=== PATIENT | male | born 1965 | race Asian ===

== ENCOUNTER 2020-03-06 23:37 | Emergency (ER) | payer BC ==
[~2020-03-06] VITALS: Ht 180.3 cm; Wt 159.0 kg
[~2020-03-06 23:37] MED LIST: ALLO100T30 PO; CEPH-376 PO; FURO40TA6 PO; HYDR-3237 PO; INSU500V SQ-INSULIN; LISI-167 PO
--- NOTE | 2020-03-07 00:21 | NUR ---
BLADDER SCAN IS 0. PT REPORTS DIALYSIS TODAY AND THAT HE MAKES VERY LITTLE URINE.
[2020-03-07 00:36] LABS: BASOPHILS # (AUTO) 0.01 x10^3/uL (0-0.1); BASOPHILS % (AUTO) 0 % (0-1); EOSINOPHILS # (AUTO) 0.26 x10^3/uL (0-0.4); EOSINOPHILS % (AUTO) 4 % (1-7); LYMPHOCYTES # (AUTO) 2.42 x10^3/uL (1-3.4); LYMPHOCYTES % (AUTO) 35 % (22-44); MD NO; MEAN CORPUSCULAR HEMOGLOBIN 30.6 pg (27.5-34.5); MEAN CORPUSCULAR VOLUME 89.9 fL (81-97); MEAN PLATELET VOLUME 6.5 fL (7.4-10.4); MONOCYTES # (AUTO) 0.52 x10^3/uL (0.2-0.8); MONOCYTES % (AUTO) 8 % (2-9); NEUTROPHILS # (AUTO) 3.79 x10^3/uL (1.8-6.8); NEUTROPHILS % (AUTO) 54 % (42-75); PLATELET COUNT 265 x10^3/uL (130-400); RED BLOOD COUNT 3.46 x10^6/uL (4.38-5.82); RED CELL DISTRIBUTION WIDTH 13.5 % (9.4-14.8)
[2020-03-07 00:44] LABS: ALANINE AMINOTRANSFERASE 22 U/L (12-78); ALBUMIN 3.2 g/dL (3.4-5.0); ANION GAP 5 mmol/L (5-15); CALCIUM 7.9 mg/dL (8.5-10.1); CHLORIDE 96 mmol/L (98-107)
[2020-03-07 00:46] LABS: ALKALINE PHOSPHATASE 56 U/L (45-117); BILIRUBIN,TOTAL 0.4 mg/dL (0.2-1.0); TOTAL PROTEIN 7.6 g/dL (6.4-8.2)
--- NOTE | 2020-03-07 01:02 | NUR ---
PT STRAIGHT CATH FOR URINE UTILIZING STERILE TECHNIQUE. PT DENIES CURRENT NEEDS AT THIS TIME.
[2020-03-07 01:15] LABS: MICROSCOPIC INDICATED
--- NOTE | 2020-03-07 02:12 | NUR ---
PT SLEEPING AT THIS TIME.
[2020-03-07 03:02] VITALS: BP 92/58
== END 2020-03-07 03:04 | disposition home or self-care (01) ==
LOC: ED 03-07 02:34
DX: I12.0 Hypertensive chronic kidney disease with stage 5 chronic kidney disease or end stage renal disease (principal); E11.22 Type 2 diabetes mellitus with diabetic chronic kidney disease; N18.6 End stage renal disease; I21.9 Acute myocardial infarction, unspecified; I45.9 Conduction disorder, unspecified; R53.1 Weakness; M10.9 Gout, unspecified; Z99.2 Dependence on renal dialysis; Z87.891 Personal history of nicotine dependence
CPT/HCPCS: 36415; 80053; 81001; 83735; 85025; 93005; 99285

== ENCOUNTER 2020-04-07 19:25 | Emergency (ER) | payer BC ==
[~2020-04-07] VITALS: Ht 180.3 cm; Wt 158.0 kg
[2020-04-07 19:47] VITALS: BP 108/72
[2020-04-07 20:21] LABS: BASOPHILS # (AUTO) 0.06 x10^3/uL (0-0.1); BASOPHILS % (AUTO) 1 % (0-1); EOSINOPHILS # (AUTO) 0.25 x10^3/uL (0-0.4); EOSINOPHILS % (AUTO) 2 % (1-7); LYMPHOCYTES # (AUTO) 2.84 x10^3/uL (1-3.4); LYMPHOCYTES % (AUTO) 28 % (22-44); MD NO; MEAN CORPUSCULAR HEMOGLOBIN 30.6 pg (27.5-34.5); MEAN CORPUSCULAR HGB CONC 33.4 g/dL (33.2-36.2); MEAN CORPUSCULAR VOLUME 91.5 fL (81-97); MEAN PLATELET VOLUME 6.6 fL (7.4-10.4); MONOCYTES # (AUTO) 0.28 x10^3/uL (0.2-0.8); MONOCYTES % (AUTO) 3 % (2-9); NEUTROPHILS # (AUTO) 6.82 x10^3/uL (1.8-6.8); NEUTROPHILS % (AUTO) 67 % (42-75); PLATELET COUNT 395 x10^3/uL (130-400); RED BLOOD COUNT 3.71 x10^6/uL (4.38-5.82); RED CELL DISTRIBUTION WIDTH 14.1 % (9.4-14.8)
[2020-04-07 20:31] LABS: ALBUMIN 3.8 g/dL (3.4-5.0); ANION GAP 8 mmol/L (5-15); CALCIUM 8.9 mg/dL (8.5-10.1); CHLORIDE 98 mmol/L (98-107); CREATININE 7.91 mg/dL (0.7-1.3)
[2020-04-07 20:34] LABS: TROPONIN I < 0.015 ng/mL (0.000-0.045)
--- NOTE | 2020-04-07 20:35 | NUR ---
this tech did ekg
--- NOTE | 2020-04-07 21:19 | NUR ---
PT COLE FOUND BY HOUSEKEEPING UNDER BED. COLE RETURNED TO PT WHO WAS STILL IN THE LOBBY AWAITING RIDE.
== END 2020-04-07 20:59 | disposition home or self-care (01) ==
LOC: ED 20:50
DX: E11.22 Type 2 diabetes mellitus with diabetic chronic kidney disease (principal); I12.0 Hypertensive chronic kidney disease with stage 5 chronic kidney disease or end stage renal disease; N18.6 End stage renal disease; R07.89 Other chest pain; R00.0 Tachycardia, unspecified; Z99.2 Dependence on renal dialysis
CPT/HCPCS: 36415; 71045; 80048; 82040; 84484; 85025; 93005; 99285

== ENCOUNTER 2020-07-27 15:03 | Outpatient (CLI) | payer MEDICARE ==
[~2020-07-27] VITALS: Ht 180.3 cm; Wt 165.1 kg
[~2020-07-27 15:03] MED LIST changes: +CHLORHEXIDINE 15 ML UDC ONE
[2020-07-27 15:58] VITALS: BP 134/88
[2020-07-27] MEDS ORDERED: PLEASE ENTER HEIGHT AND WEIGHT MC SCH (16:00)
[2020-07-27] MEDS ORDERED: CHLORHEXIDINE 15 ML UDC MM ONE (16:00)
[2020-07-27] MEDS ORDERED: HEPARIN 1,000 UNITS/ML, 10ML ONE (16:01)
[2020-07-27] MEDS ORDERED: PROTAMINE SULFATE 10 MG/ML, 5ML ONE (16:01)
[2020-07-27] MEDS ORDERED: THROMBIN 5,000 UNIT VIAL TP ONE (16:01)
[2020-07-27] MEDS ORDERED: PAPAVERINE 30 MG/ML, 2ML ONE (16:01)
[2020-07-27] MEDS ORDERED: BUPIVACAINE/PF 0.25% ONE (16:01)
[2020-07-27 16:26] LABS: BASOPHILS % (AUTO) 1 % (0-1); EOSINOPHILS % (AUTO) 2 % (1-7); LYMPHOCYTES % (AUTO) 19 % (22-44); MEAN CORPUSCULAR HEMOGLOBIN 30.7 pg (27.5-34.5); MEAN CORPUSCULAR HGB CONC 33.8 g/dL (33.2-36.2); MEAN PLATELET VOLUME 6.7 fL (7.4-10.4); MONOCYTES % (AUTO) 8 % (2-9); NEUTROPHILS % (AUTO) 70 % (42-75); PLATELET COUNT 443 x10^3/uL (130-400); RED BLOOD COUNT 3.93 x10^6/uL (4.38-5.82)
[2020-07-27 16:27] LABS: MD NO
[2020-07-27 16:32] LABS: ANION GAP 11 mmol/L (5-15); CALCIUM 9.1 mg/dL (8.5-10.1); CHLORIDE 95 mmol/L (98-107)
[2020-07-31] MEDS ORDERED: HEPARIN 1,000 UNITS/ML, 10ML ONE (18:21)
[2020-07-31] MEDS ORDERED: BUPIVACAINE/PF 0.25% ONE (18:21)
== END 2020-07-27 23:59 | disposition home or self-care (01) ==
LOC: OUT 15:03 → OR 15:03 → EDSTATUS 17:00 → OUT 23:59
PROVIDERS: ATTEND Surgery
DX: T82.590A Other mechanical complication of surgically created arteriovenous fistula, initial encounter (principal); Z53.8 Procedure and treatment not carried out for other reasons; N18.6 End stage renal disease; Z20.828 Contact with and (suspected) exposure to other viral communicable diseases; Y82.8 Other medical devices associated with adverse incidents; Z88.0 Allergy status to penicillin; Z79.4 Long term (current) use of insulin; Z79.899 Other long term (current) drug therapy; Z98.890 Other specified postprocedural states; Z87.891 Personal history of nicotine dependence
CPT/HCPCS: 80048; 82962; 85025; 87635; 93005; J1644; J2720; J2440

== ENCOUNTER 2020-08-07 15:06 | Day surgery (SDC) | payer MEDICARE ==
[~2020-08-07] VITALS: Ht 180.3 cm; Wt 166.6 kg
[~2020-08-07 15:06] MED LIST changes: +CEFAZOLIN 1,000 MG ONE; -CHLORHEXIDINE 15 ML UDC ONE; +DEXAMETHASONE 4 MG/ML, 1ML ONE; +ONDANSETRON 2MG/ML, 2ML ONE; +PROPOFOL 10 MG/ML, 20ML ONE; +SUCCINYLCHOLINE 20 MG/ML, 10ML ONE
[2020-08-07] MEDS ORDERED: SODIUM CHLORIDE 0.9% 1,000 ML IV SCH (16:00)
[2020-08-07] MEDS ORDERED: CHLORHEXIDINE 15 ML UDC MM ONE (16:00)
[2020-08-07 16:01] VITALS: BP 153/91
[2020-08-07] MEDS ORDERED: THROMBIN 5,000 UNIT VIAL TP ONE (16:09)
[2020-08-07] MEDS ORDERED: PROTAMINE SULFATE 10 MG/ML, 5ML ONE (16:09)
[2020-08-07] MEDS ORDERED: HEPARIN 1,000 UNITS/ML, 10ML ONE (16:09)
[2020-08-07] MEDS ORDERED: MIDAZOLAM 1 MG/ML, 2ML ONE (16:17)
[2020-08-07] MEDS ORDERED: FENTANYL PF 250 MCG/5ML ONE (16:18)
[2020-08-07] MEDS ORDERED: DIPHENHYDRAMINE 50 MG/ML, 1ML IVPush PRN (17:30)
[2020-08-07] MEDS ORDERED: ALBUTEROL SULFATE 2.5 MG/3 ML NPPB PRN (17:30)
[2020-08-07] MEDS ORDERED: LABETALOL 5MG/ML, 20ML IV PRN (17:30)
[2020-08-07] MEDS ORDERED: MIDAZOLAM 1 MG/ML, 2ML IV PRN (17:30)
[2020-08-07] MEDS ORDERED: FENTANYL PF 100 MCG/2ML IV PRN (17:30)
[2020-08-07] MEDS ORDERED: EPHEDRINE 50 MG/ML, 1ML IVPush PRN (17:30)
[2020-08-07] MEDS ORDERED: PROMETHAZINE 25 MG/ML, 1ML IVPush PRN (17:30)
[2020-08-07] MEDS ORDERED: ONDANSETRON 2MG/ML, 2ML IVPush PRN ×2 (17:30→20:00)
[2020-08-07] MEDS ORDERED: OXYcodone 5 MG/5 ML ORAL.SOL UDC PO PRN (17:30)
[2020-08-07] MEDS ORDERED: PROMETHAZINE 12.5 MG SUPP PR PRN (17:30)
[2020-08-07] MEDS ORDERED: DIAZEPAM 5 MG/ML, 2ML IVPush PRN (17:30)
[2020-08-07] MEDS ORDERED: hydrALAzine 20 MG/ML, 1ML IV PRN (17:30)
[2020-08-07] MEDS ORDERED: HYDROmorphone 1 MG/ML, 1ML INJ IVPush PRN (17:30)
[2020-08-07] MEDS ORDERED: MEPERIDINE/PF 25MG/0.5ML IVPush PRN (17:30)
[2020-08-07] MEDS ORDERED: ACETAMINOPHEN 325 MG TABLET PO PRN (17:30)
[2020-08-07] MEDS ORDERED: PAPAVERINE 30 MG/ML, 2ML ONE (17:42)
[2020-08-07] MEDS ORDERED: BUPIVACAINE/PF 0.25% INFIL ONE (17:56)
[2020-08-07] MEDS ORDERED: OXYcodone 5 MG/5 ML ORAL.SOL UDC ONE (18:43)
[2020-08-07] MEDS ORDERED: MEPERIDINE/PF 25MG/ML,1ML ONE (18:46)
[2020-08-07] MEDS ORDERED: MORPHINE SULFATE 4 MG/ML, 1ML IVPush PRN (19:30)
[2020-08-07] MEDS ORDERED: HYDROcodone/APAP 5/325 TABLET PO PRN (20:00)
[2020-08-07 20:03] VITALS: BP 152/96
[2020-08-07] MEDS ORDERED: HYDR-3240 PO (20:06)
== END 2020-08-07 23:00 | disposition home or self-care (01) ==
LOC: OR 15:06 → 4NE 19:15 → OR 23:00
PROVIDERS: ATTEND Surgery
DX: T82.590A Other mechanical complication of surgically created arteriovenous fistula, initial encounter (principal); E11.22 Type 2 diabetes mellitus with diabetic chronic kidney disease; I12.0 Hypertensive chronic kidney disease with stage 5 chronic kidney disease or end stage renal disease; N18.6 End stage renal disease; E66.01 Morbid (severe) obesity due to excess calories; Z79.4 Long term (current) use of insulin; Z79.899 Other long term (current) drug therapy; Z88.0 Allergy status to penicillin; Z99.2 Dependence on renal dialysis; Z82.49 Family history of ischemic heart disease and other diseases of the circulatory system; Z83.3 Family history of diabetes mellitus; Y83.8 Other surgical procedures as the cause of abnormal reaction of the patient, or of later complication, without mention of misadventure at the time of the procedure
CPT/HCPCS: 36832; 80047; 82962; J0330; J0690; J1100; J1644; J2250; J2405; J2440; J2704; J2720; J3010; J7030; G0378

== ENCOUNTER 2020-08-11 16:39 | Emergency (ER) | payer MEDICARE ==
[~2020-08-11] VITALS: Ht 175.3 cm; Wt 160.0 kg
[~2020-08-11 16:39] MED LIST changes: -CEFAZOLIN 1,000 MG ONE; -DEXAMETHASONE 4 MG/ML, 1ML ONE; +HYDR-3240 PO; -ONDANSETRON 2MG/ML, 2ML ONE; -PROPOFOL 10 MG/ML, 20ML ONE; -SUCCINYLCHOLINE 20 MG/ML, 10ML ONE
--- NOTE | 2020-08-11 16:58 | NUR ---
PT BIB EMS FOR CONSTIPATION X4 DAYS. ONLY TRIED PRUNE JUICE, NO OTHER OTC MEDS. CO ABDOMINAL PAIN. PT HAS NEW FISTULA FOR DIALYSIS. WAS THERE TODAY. DENIES CP, SOB.
--- NOTE | 2020-08-11 17:41 | NUR ---
PT AMBULATED TO BATHROOM. NO BM
[2020-08-11] MEDS ORDERED: PINK LADY ENEMA 490 ML BOTTLE PR ONE (18:30)
--- NOTE | 2020-08-11 18:47 | NUR ---
REPORT TO ANGELICA
--- NOTE | 2020-08-11 18:55 | NUR ---
PT RESTING ON [facility] CALL LIGHT IN REACH, WAITING FOR [facility] FROM PHARM
--- NOTE | 2020-08-11 19:21 | NUR ---
PT TOLERATED ENEMA WELL, ABLE TO LAY ON SIDE FOR 7 MINUTES PRIOR TO AMBULATING TO RESTROOM. PT WALKED WITH A SMOOTH AND STEADY GAIT TO BATHROOM. PT REPORTS "I FEEL LIKE I HAVE TO GO NOW". PT NAD, INSTRUCTED TO PULL CALL LIGHT IF HE NEEDS ANY ASSISTANCE. CELINA.
--- NOTE | 2020-08-11 20:07 | NUR ---
PT UNABLE TO HAVE BM AFTER FIRST ENEMA, AWARE AND ORDERED H ENEMA. PT DECIDED TO TRY TO GO TO RESTROOM ONE MORE TIME PRIOR TO ADMINISTRATION. PT NAD, SMOOTH STEADY GAIT, NO CHANGE IN CONDITION, WCTM.
--- NOTE | 2020-08-11 20:46 | NUR ---
[facility] ENEMA ADMINISTERED, PT UNABLE TO HAVE A FULL BM PASSED SIGNIFICANT AMOUNTS OF BRAIN LIQUID BUT NO SOLID STOOL NOTED. PT REPORTS HE STILL "FEELS FULL" AND LIKE HE HAS MORE STOOL. PT RESTING ON [facility] AT THIS TIME, GENARO MORAN AWARE, WCTM.
[2020-08-11 20:49] VITALS: BP 130/94
[2020-08-11] MEDS ORDERED: BISACODYL 5 MG EC TABLET ONE ×2 (21:06→21:12)
--- NOTE | 2020-08-11 21:13 | NUR ---
Patient given discharge instructions and they have confirmed that they understand the instructions. Patient ambulatory with steady gait. DENIES ADDITIONAL QUESTIONS OR NEEDS AT THIS TIME. NAD. NO PERSONAL BELONGINGS NOTED IN ROOM AFTER DC.
[2020-08-11] MEDS ORDERED: BISACODYL 5 MG EC TABLET PO ONE (21:30)
== END 2020-08-11 21:22 | disposition home or self-care (01) ==
LOC: ED 18:47
DX: K59.00 Constipation, unspecified (principal); I10 Essential (primary) hypertension; E11.9 Type 2 diabetes mellitus without complications
CPT/HCPCS: 74018; 99284